=== PATIENT | male | born 1970 | race Caucasian/White ===

== ENCOUNTER → 2016-05-06 | Outpatient (CLI) | payer BC ==
[~2016-05-06] MED LIST: OXYC-409
[2016-05-06 13:48] LABS: CHOLESTEROL/HDL RATIO 4.4
== END | disposition home or self-care (01) ==
LOC: C.LABMFLN 10:59
PROVIDERS: ATTEND Family Medicine
DX: Z13.1 Encounter for screening for diabetes mellitus (principal); Z13.220 Encounter for screening for lipoid disorders